=== PATIENT | female | born 1940 | race Caucasian/White ===

== ENCOUNTER 2017-01-25 17:11 | Inpatient (IN) | payer OTHER ==
[~2017-01-25] VITALS: Ht 160 cm; Wt 68.9 kg
[2017-01-25] VITALS (7 sets, daily range): BP systolic 98–127; BP diastolic 34–70
[~2017-01-25 17:11] MED LIST: ALBU8.5H5 INH; ASCO-96 PO; CALC1CAP8 PO; CHOL10002 PO; CHOL2000 PO; ESCI10TA10 PO; FOLI-17 PO; FURO-93 PO; IRON15TA3 PO; LEVO50TA PO; LISI5TAB7 PO; PANT20TA3 PO; POTA25TA4 PO; POTA8TAB PO; PROP10TA PO; TIOT18CA INH
[2017-01-25] MEDS ORDERED: ALBU8.5H8 INH (17:59)
[2017-01-25] MEDS ORDERED: POTA10TA31 PO (18:36)
[2017-01-25] MEDS ORDERED: FLUT9.9S16 NAS (18:39)
[2017-01-25 18:45] LABS: ASPARTATE AMINO TRANSFERASE 21 U/L (15-37); BLOOD UREA NITROGEN 17 mg/dL (7-18)
[2017-01-25 18:50] LABS: IS PT STATUS REG ER OR PRE ER? YES
[2017-01-25 18:53] LABS: WHITE BLOOD COUNT 3.2 x10^3/uL (3.4-10)
[2017-01-25 18:55] LABS: HEMATOCRIT 17.2 % (34.6-47.8); HEMOGLOBIN 5.1 g/dL (11.7-16.4)
[2017-01-25] MEDS ORDERED: SODIUM CHLORIDE 0.9% 1,000ML IVBOLUS ONE (20:00)
[2017-01-25] MEDS ORDERED: SODIUM CHLORIDE FLUSH 10ML SYR IVF PRN (20:00)
[2017-01-25] MEDS ORDERED: TIOT4MIS3 INH (20:50)
[2017-01-25] MEDS ORDERED: TEMPLATE NON-FORMULARY MED. (Albuterol Sulfate** (Albuterol Sulfate Hfa**) 2 PUFF(S)) INH PRN (21:00)
[2017-01-25] MEDS ORDERED: BISACODYL 10 MG SUPP PR PRN (21:00)
[2017-01-25] MEDS ORDERED: ONDANSETRON 2MG/ML, 2ML IVPush PRN (21:00)
[2017-01-25] MEDS: SODIUM CHLORIDE FLUSH 10ML SYR IVF SCH (21:00)
[2017-01-25] MEDS ORDERED: PANTOPRAZOLE 80 MG in SODIUM CHLORIDE 0.9% 50 ML IV ONE (21:00)
[2017-01-25] MEDS ORDERED: ALBUTEROL SULFATE 2.5 MG/3 ML NPPB PRN (21:00)
[2017-01-25] MEDS ORDERED: ACETAMINOPHEN 325 MG TABLET PO PRN (21:00)
[2017-01-25 21:02] LABS: FERRITIN 12.9 ng/mL (8-252)
[2017-01-25] MEDS ORDERED: FLUTICASONE NASAL SPRAY 16GM NAS PRN (21:30)
[2017-01-25] MEDS: PANTOPRAZOLE 80 MG in SODIUM CHLORIDE 0.9% 100 ML IV SCH (22:13)
[2017-01-25] MEDS: PROPRANOLOL 10 MG TABLET PO SCH (22:13)
[2017-01-26 00:49] VITALS: BP 138/65
[2017-01-26 01:20] VITALS: BP 113/75
[2017-01-26 01:46] LABS: HEMATOCRIT 24.4 % (34.6-47.8)
[2017-01-26] MEDS: LEVOTHYROXINE 50 MCG TABLET PO SCH (05:50)
[2017-01-26 07:15] LABS: BLOOD UREA NITROGEN 13 mg/dL (7-18)
[2017-01-26 07:19] LABS: ASPARTATE AMINO TRANSFERASE 17 U/L (15-37)
[2017-01-26 07:21] LABS: HEMATOCRIT 24.9 % (34.6-47.8); WHITE BLOOD COUNT 3.4 x10^3/uL (3.4-10)
[2017-01-26 07:38] LABS: ANISOCYTOSIS 1+; HYPOCHROMIA 1+; POLYCHROMASIA 1+; STOMATOCYTES 1+
[2017-01-26 07:41] LABS: SPHEROCYTES 1+
[2017-01-26 07:42] LABS: LARGE PLATELETS 1+
[2017-01-26 07:45] VITALS: BP 108/59
[2017-01-26] MEDS: FUROSEMIDE 20 MG/2 ML IV SCH (09:00)
[2017-01-26] MEDS: ASCORBIC ACID 500 MG TABLET PO SCH (09:00)
[2017-01-26] MEDS ORDERED: POTASSIUM CHLORIDE 10 MEQ TABLET.ER PO SCH (09:00)
[2017-01-26] MEDS: CALCIUM/VITAMIN D3 250-125 TABLET PO SCH ×2 (09:00→20:27)
[2017-01-26] MEDS: OLODATEROL HCL INH SCH (09:00)
[2017-01-26] MEDS: CHOLECALCIFEROL 1,000 UNIT TABLET PO SCH (09:00)
[2017-01-26] MEDS: TIOTROPIUM BR INH SCH (09:00)
[2017-01-26] MEDS: PROPRANOLOL 10 MG TABLET PO SCH ×3 (09:00→20:27)
[2017-01-26] MEDS: [UNRECOGNIZED DRUG - OTHER] INH SCH (09:00)
[2017-01-26] MEDS: FOLIC ACID 1 MG TABLET PO SCH (09:00)
[2017-01-26] MEDS: PANTOPRAZOLE 80 MG in SODIUM CHLORIDE 0.9% 100 ML IV SCH ×2 (10:02→20:27)
[2017-01-26] MEDS: SODIUM CHLORIDE FLUSH 10ML SYR IVF SCH ×2 (10:05→20:26)
[2017-01-26 12:35] LABS: HEMATOCRIT 24.9 % (34.6-47.8)
[2017-01-26] MEDS: ALBUTEROL SULFATE 2.5 MG/3 ML NPPB PRN (12:45)
[2017-01-26 15:15] VITALS: BP 121/56
[2017-01-26 16:30] LABS: HEMATOCRIT 25.6 % (34.6-47.8); HEMOGLOBIN 8.1 g/dL (11.7-16.4)
[2017-01-26 18:33] LABS: HEMATOCRIT 25.8 % (34.6-47.8)
[2017-01-26 19:40] VITALS: BP 128/67
[2017-01-27] VITALS (7 sets, daily range): BP systolic 106–134; BP diastolic 57–71
[2017-01-27] LABS: HEMATOCRIT 25.8 % (34.6-47.8); HEMOGLOBIN 8.2 g/dL (11.7-16.4)
[2017-01-27] MEDS: PANTOPRAZOLE 80 MG in SODIUM CHLORIDE 0.9% 100 ML IV SCH (05:59)
[2017-01-27 07:48] LABS: HEMATOCRIT 24.5 % (34.6-47.8); HEMOGLOBIN 7.9 g/dL (11.7-16.4)
[2017-01-27 08:01] LABS: BLOOD UREA NITROGEN 11 mg/dL (7-18)
[2017-01-27 08:04] LABS: ASPARTATE AMINO TRANSFERASE 13 U/L (15-37)
[2017-01-27] MEDS: PROPRANOLOL 10 MG TABLET PO SCH ×3 (08:28→21:39)
[2017-01-27] MEDS: [UNRECOGNIZED DRUG - OTHER] INH SCH (08:29)
[2017-01-27] MEDS: TIOTROPIUM BR INH SCH (08:29)
[2017-01-27] MEDS: OLODATEROL HCL INH SCH (08:29)
[2017-01-27] MEDS: FUROSEMIDE 20 MG/2 ML IV SCH ×2 (08:35→14:49)
[2017-01-27] MEDS: SODIUM CHLORIDE FLUSH 10ML SYR IVF SCH ×2 (08:41→21:40)
[2017-01-27] MEDS ORDERED: PROPOFOL 10 MG/ML, 20ML ONE (09:40)
[2017-01-27] MEDS ORDERED: hydrALAzine 20 MG/ML, 1ML IV PRN (10:30)
[2017-01-27] MEDS ORDERED: HYDROmorphone 1 MG/ML, 1ML IV PRN (10:30)
[2017-01-27] MEDS ORDERED: FENTANYL PF 100 MCG/2ML IV PRN (10:30)
[2017-01-27] MEDS ORDERED: MIDAZOLAM 1 MG/ML, 2ML IV PRN (10:30)
[2017-01-27] MEDS ORDERED: LABETALOL 5MG/ML, 20ML IV PRN (10:30)
[2017-01-27] MEDS ORDERED: OMEPRAZOLE 20 MG CAPSULE.DR PO SCH (10:30)
[2017-01-27] MEDS ORDERED: EPHEDRINE 50 MG/ML, 1ML IVPush PRN (10:30)
[2017-01-27] MEDS ORDERED: ONDANSETRON 2MG/ML, 2ML IVPush PRN (10:30)
[2017-01-27] MEDS ORDERED: FUROSEMIDE 40 MG/4 ML IV ONE (12:00)
[2017-01-27] MEDS: CHOLECALCIFEROL 1,000 UNIT TABLET PO SCH (12:09)
[2017-01-27] MEDS: ASCORBIC ACID 500 MG TABLET PO SCH (12:10)
[2017-01-27] MEDS: CALCIUM/VITAMIN D3 250-125 TABLET PO SCH ×2 (12:10→21:39)
[2017-01-27] MEDS: FOLIC ACID 1 MG TABLET PO SCH (12:10)
[2017-01-27 12:27] LABS: HEMATOCRIT 27.6 % (34.6-47.8); HEMOGLOBIN 8.7 g/dL (11.7-16.4)
[2017-01-27] MEDS: IRON SUCROSE COMPLEX 100MG/5ML IV SCH (13:38)
[2017-01-27] MEDS: LEVOTHYROXINE 50 MCG TABLET PO SCH (13:38)
[2017-01-27] MEDS: ALBUTEROL SULFATE 2.5 MG/3 ML NPPB PRN (17:46)
[2017-01-27] MEDS ORDERED: POTASSIUM CHLORIDE 10 MEQ TABLET.ER PO SCH (21:30)
[2017-01-27] MEDS: OMEPRAZOLE/SOD. BICARB. PACKET PO SCH (22:05)
[2017-01-28 01:05] VITALS: BP 148/69
[2017-01-28] MEDS: LEVOTHYROXINE 50 MCG TABLET PO SCH (05:56)
[2017-01-28 07:08] VITALS: BP 114/62
[2017-01-28] MEDS ORDERED: OMEPRAZOLE/SOD. BICARB. PACKET PO SCH (07:30)
[2017-01-28 07:39] LABS: HEMOGLOBIN 8.8 g/dL (11.7-16.4); WHITE BLOOD COUNT 4.7 x10^3/uL (3.4-10)
[2017-01-28 07:41] LABS: ASPARTATE AMINO TRANSFERASE 21 U/L (15-37); BLOOD UREA NITROGEN 11 mg/dL (7-18)
[2017-01-28 08:42] LABS: ANISOCYTOSIS 1+; MICROCYTOSIS 1+; POLYCHROMASIA 1+
[2017-01-28 08:43] LABS: OVALOCYTES 1+; POIKILOCYTOSIS 1+
[2017-01-28 08:45] LABS: LARGE PLATELETS 1+; STOMATOCYTES 1+
[2017-01-28] MEDS ORDERED: POTASSIUM CHLORIDE 10% 20 MEQ/15 ML UDC PO SCH (09:00)
[2017-01-28] MEDS ORDERED: ALBUTEROL SULFATE 2.5 MG/3 ML NPPB SCH (09:00)
[2017-01-28] MEDS ORDERED: [UNRECOGNIZED DRUG - OTHER] PO SCH (09:30)
[2017-01-28] MEDS: OLODATEROL HCL INH SCH (09:43)
[2017-01-28] MEDS: TIOTROPIUM BR INH SCH (09:43)
[2017-01-28] MEDS: OMEPRAZOLE/SOD. BICARB. PACKET PO SCH (09:43)
[2017-01-28] MEDS: [UNRECOGNIZED DRUG - OTHER] INH SCH (09:43)
[2017-01-28] MEDS: IRON SUCROSE COMPLEX 100MG/5ML IV SCH (09:44)
[2017-01-28] MEDS: FOLIC ACID 1 MG TABLET PO SCH (09:44)
[2017-01-28] MEDS: CHOLECALCIFEROL 1,000 UNIT TABLET PO SCH (09:44)
[2017-01-28] MEDS: PROPRANOLOL 10 MG TABLET PO SCH ×2 (09:44→16:00)
[2017-01-28] MEDS: CALCIUM/VITAMIN D3 250-125 TABLET PO SCH (09:44)
[2017-01-28] MEDS: ASCORBIC ACID 500 MG TABLET PO SCH (09:44)
[2017-01-28] MEDS: SODIUM CHLORIDE FLUSH 10ML SYR IVF SCH (09:45)
[2017-01-28 12:34] VITALS: BP 107/61
== END 2017-01-28 16:13 | disposition home or self-care (01) | DRG 377 ==
LOC: ED 19:40 → EDIP 19:45 → ED 20:05 → 4WST 21:13 → DCLOUNGE 01-28 15:44
PROVIDERS: ADMIT Hospitalist; ATTEND Hospitalist
PROC: 30233N1 Transfusion of Nonautologous Red Blood Cells into Peripheral Vein, Percutaneous Approach (ICD-10-PCS; principal; 2017-01-25)
PROC: 0D568ZZ Destruction of Stomach, Via Natural or Artificial Opening Endoscopic (ICD-10-PCS; 2017-01-27)
PROC: 0DB98ZX Excision of Duodenum, Via Natural or Artificial Opening Endoscopic, Diagnostic (ICD-10-PCS; 2017-01-27)
PROC: 0DB78ZX Excision of Stomach, Pylorus, Via Natural or Artificial Opening Endoscopic, Diagnostic (ICD-10-PCS; 2017-01-27)
DX: K55.21 Angiodysplasia of colon with hemorrhage (principal); E43 Unspecified severe protein-calorie malnutrition; J96.10 Chronic respiratory failure, unspecified whether with hypoxia or hypercapnia; D69.6 Thrombocytopenia, unspecified; Z99.81 Dependence on supplemental oxygen; J44.9 Chronic obstructive pulmonary disease, unspecified; D62 Acute posthemorrhagic anemia; K29.01 Acute gastritis with bleeding; K92.1 Melena; K70.30 Alcoholic cirrhosis of liver without ascites; E03.9 Hypothyroidism, unspecified; Z68.26 Body mass index [BMI] 26.0-26.9, adult; D50.9 Iron deficiency anemia, unspecified; I10 Essential (primary) hypertension; K44.9 Diaphragmatic hernia without obstruction or gangrene; R04.0 Epistaxis; Z82.49 Family history of ischemic heart disease and other diseases of the circulatory system; Z87.891 Personal history of nicotine dependence
CPT/HCPCS: 36415; 36430; 71010; 76700; 80053; 82105; 82728; 83540; 83550; 83880; 84484; 85014; 85018; 85025; 85610; 85730; 86850; 86900; 86923; 88305; 93005; 93306; 93970; 94640; 99291; J1756; J2704; J7613; C9113; J1940; J7030; P9016

== ENCOUNTER 2017-03-07 10:54 | Day surgery (SDC) | payer OTHER ==
[~2017-03-07] VITALS: Ht 160 cm; Wt 58.7 kg
[~2017-03-07 10:54] MED LIST changes: +ALBU8.5H8 INH; +FLUT9.9S16 NAS; +POTA10TA31 PO; +TIOT4MIS3 INH
[2017-03-07] MEDS ORDERED: LACTATED RINGERS 1,000 ML IV SCH (11:23)
[2017-03-07 12:08] VITALS: BP 130/68
[2017-03-07] MEDS ORDERED: PROPOFOL 10 MG/ML, 20ML ONE (13:26)
[2017-03-07] MEDS ORDERED: ALBUTEROL/IPRATROPIUM 2.5MG/0.5MG, 3 ML NPPB PRN (14:00)
[2017-03-07] MEDS ORDERED: ONDANSETRON 2MG/ML, 2ML IVPush PRN (14:00)
[2017-03-07] MEDS ORDERED: OXYcodone 5 MG/5 ML ORAL.SOL UDC PO PRN (14:00)
[2017-03-07] MEDS ORDERED: ACETAMINOPHEN 325 MG TABLET PO PRN (14:00)
[2017-03-07] MEDS ORDERED: HYDROmorphone 1 MG/ML, 1ML IV PRN (14:00)
[2017-03-07] MEDS ORDERED: FENTANYL PF 100 MCG/2ML IV PRN (14:00)
[2017-03-07] MEDS ORDERED: ALBUTEROL SULFATE 2.5 MG/3 ML ONE (14:24)
== END 2017-03-07 16:00 ==
LOC: OUT 10:54
PROVIDERS: ATTEND Internal Medicine
DX: K55.21 Angiodysplasia of colon with hemorrhage (principal); D64.9 Anemia, unspecified
CPT/HCPCS: 43255; 94640; C1769; J2704; J7120; J7620

== ENCOUNTER 2017-05-06 12:54 | Emergency (ER) | payer OTHER ==
[~2017-05-06] VITALS: Ht 157.5 cm; Wt 63.0 kg
[2017-05-06] MEDS ORDERED: PANT40TA5 PO (13:27)
[2017-05-06] MEDS ORDERED: ONDANSETRON 2MG/ML, 2ML ONE (13:37)
[2017-05-06] MEDS ORDERED: MORPHINE SULFATE 4 MG/ML, 1ML ONE (13:37)
[2017-05-06] MEDS ORDERED: MORPHINE SULFATE 4 MG/ML, 1ML IVPush PRN (14:00)
[2017-05-06] MEDS ORDERED: ONDANSETRON 2MG/ML, 2ML IVPush ONE (14:00)
[2017-05-06 15:42] VITALS: BP 134/42
== END 2017-05-06 15:46 | disposition home or self-care (01) ==
LOC: ED 15:40
DX: S70.02XA Contusion of left hip, initial encounter (principal); S00.83XA Contusion of other part of head, initial encounter; I10 Essential (primary) hypertension; J44.9 Chronic obstructive pulmonary disease, unspecified; K21.9 Gastro-esophageal reflux disease without esophagitis; E03.9 Hypothyroidism, unspecified; W01.0XXA Fall on same level from slipping, tripping and stumbling without subsequent striking against object, initial encounter; Y93.89 Activity, other specified; Y92.480 Sidewalk as the place of occurrence of the external cause; Y99.8 Other external cause status
CPT/HCPCS: 70450; 70486; 72125; 93005; 96374; 96375; 99284; J2405

== ENCOUNTER 2020-11-20 18:42 | Inpatient (IN) | payer MEDICARE ==
[~2020-11-20] VITALS: Ht 157.5 cm; Wt 50.5 kg
[~2020-11-20 18:42] MED LIST changes: -FOLI-17 PO; +FOLI1TAB32 PO; -PANT20TA3 PO; +PANT20TA4 PO; +PANT40TA6 PO; -PROP10TA PO; +PROP10TA16 PO
--- NOTE | 2020-11-20 18:59 | NUR ---
RECEIVED REPORT FROM TORI MEHTA. TRANSFER OF CARE. [facility]ITER OUTSIDE ROOM FOR SAFETY MONITORING Addendum: 11/20/20 at 1900 by [email or web address] SITTER NOT OUT [place]
[2020-11-20] MEDS ORDERED: SODIUM CHLORIDE FLUSH 10ML SYR IVF ONE (19:00)
[2020-11-20 19:16] LABS: BASOPHILS % (AUTO) 1 % (0-1); EOSINOPHILS % (AUTO) 3 % (1-7); LYMPHOCYTES % (AUTO) 13 % (22-44); MEAN CORPUSCULAR HEMOGLOBIN 32.4 pg (27.0-34.8); MEAN CORPUSCULAR HGB CONC 34.3 g/dL (32.4-35.8); MEAN PLATELET VOLUME 8.6 fL (7.4-10.4); MONOCYTES % (AUTO) 10 % (2-9); NEUTROPHILS % (AUTO) 73 % (42-75); PLATELET COUNT 146 x10^3/uL (130-400); RED BLOOD COUNT 3.43 x10^6/uL (3.82-5.3); RED CELL DISTRIBUTION WIDTH 13.1 % (9.6-15.2)
[2020-11-20 19:25] LABS: ALANINE AMINOTRANSFERASE 15 U/L (12-78); ALBUMIN 2.4 g/dL (3.4-5.0); ANION GAP 4 mmol/L (5-15); CALCIUM 9.2 mg/dL (8.5-10.1); CHLORIDE 102 mmol/L (98-107); CREATININE 0.59 mg/dL (0.55-1.02)
[2020-11-20 19:30] LABS: INTERNATIONAL NORMALIZED RATIO 1.07 (0.93-1.1); PROTHROMBIN TIME 11.4 Seconds (9.6-11.5)
--- NOTE | 2020-11-20 19:30 | NUR ---
pt c/o of epigastric pain last night. pt states that pain began to get worse. denies fever/chills, cp, sob, n/v attached to card/sp02/bp monitors. vss. daughter at bedside. nadn bed in low, rails engaged, call light on lap. pt currently resting in bed watching tv. wctm
[2020-11-20 19:35] LABS: ALKALINE PHOSPHATASE 97 U/L (45-117); BILIRUBIN,TOTAL 0.9 mg/dL (0.2-1.0); TOTAL PROTEIN 6.1 g/dL (6.4-8.2); TROPONIN I < 0.015 ng/mL (0.000-0.045)
--- NOTE | 2020-11-20 19:49 | NUR ---
PT OFF UNIT IN IMAGING.
--- NOTE | 2020-11-20 19:54 | NUR ---
MED REC COMPLETE
--- NOTE | 2020-11-20 19:54 | NUR ---
PT BACK FROM [place]. [facility] [facility]. TRUJ[place]O. JOSE RAUL
[2020-11-20] MEDS ORDERED: OMNIPAQUE 350 MG/ML, 100ML BOTTLE ONE (20:02)
--- NOTE | 2020-11-20 20:26 | NUR ---
pt transferred from gyne bed to [facility]. pt given pillows and blankets for comfort. pt resting in bed watching tv. vss. attached to all monitors. nadn./ wctm
[2020-11-20] MEDS ORDERED: MORPHINE SULFATE 4 MG/ML, 1ML ONE (20:51)
[2020-11-20] MEDS ORDERED: SODIUM CHLORIDE 0.9% 1,000ML IVBOLUS ONE (21:00)
[2020-11-20] MEDS ORDERED: SODIUM CHLORIDE 0.9% 1,000 ML IV ONE (21:00)
[2020-11-20] MEDS ORDERED: MORPHINE SULFATE 4 MG/ML, 1ML IVPush ONE (21:00)
--- NOTE | 2020-11-20 22:11 | NUR ---
US AT BEDSIDE
--- NOTE | 2020-11-20 22:18 | NUR ---
GAVE REPORT TO WILLARD MEHTA.
[2020-11-20] MEDS ORDERED: MELATONIN 5 MG TABLET PO PRN (22:30)
[2020-11-20] MEDS ORDERED: DILTIAZEM 5 MG/ML, 5ML IVPush PRN (22:30)
[2020-11-20] MEDS ORDERED: ONDANSETRON 2MG/ML, 2ML IVPush PRN (22:30)
[2020-11-20] MEDS ORDERED: morphine SULFATE 10 MG/ML, 1ML IVPush PRN (22:30)
[2020-11-20] MEDS ORDERED: LABETALOL 5MG/ML, 20ML IVPush PRN (22:30)
--- NOTE | 2020-11-20 22:38 | NUR ---
PT GIVEN WATER. AWAITING TRANFER TO FLOOR
--- NOTE | 2020-11-20 22:48 | NUR ---
GAVE REPORT TO LAUREN MEHTA
[2020-11-20 23:18] VITALS: BP 129/66
[2020-11-20] MEDS: ENOXAPARIN 40 MG/0.4 ML SQ SCH (23:48)
[2020-11-21 00:15] VITALS: BP 122/71
[2020-11-21 05:53] LABS: BASOPHILS % (AUTO) 1 % (0-1); EOSINOPHILS % (AUTO) 3 % (1-7); LYMPHOCYTES % (AUTO) 17 % (22-44); MEAN CORPUSCULAR HEMOGLOBIN 32.9 pg (27.0-34.8); MEAN CORPUSCULAR HGB CONC 34.8 g/dL (32.4-35.8); MEAN PLATELET VOLUME 8.8 fL (7.4-10.4); MONOCYTES % (AUTO) 9 % (2-9); NEUTROPHILS % (AUTO) 71 % (42-75); PLATELET COUNT 126 x10^3/uL (130-400); RED BLOOD COUNT 3.14 x10^6/uL (3.82-5.3); RED CELL DISTRIBUTION WIDTH 13.2 % (9.6-15.2)
[2020-11-21 05:57] LABS: INTERNATIONAL NORMALIZED RATIO 1.08 (0.93-1.1); PROTHROMBIN TIME 11.5 Seconds (9.6-11.5)
[2020-11-21 06:00] LABS: ALANINE AMINOTRANSFERASE 11 U/L (12-78); ALBUMIN 2.4 g/dL (3.4-5.0); ANION GAP 2 mmol/L (5-15); CHLORIDE 108 mmol/L (98-107); CREATININE 0.43 mg/dL (0.55-1.02)
[2020-11-21 06:02] LABS: ALKALINE PHOSPHATASE 89 U/L (45-117); BILIRUBIN,TOTAL 0.6 mg/dL (0.2-1.0); TOTAL PROTEIN 5.6 g/dL (6.4-8.2)
[2020-11-21] MEDS: ALBUTEROL/IPRATROPIUM 2.5MG/0.5MG, 3 ML NPPB SCH ×2 (07:55→21:00)
[2020-11-21 08:26] VITALS: BP 123/69
[2020-11-21] MEDS: FAMOTIDINE 20 MG TABLET PO SCH ×2 (08:32→20:07)
[2020-11-21] MEDS ORDERED: ALBUTEROL SULFATE 2.5 MG/3 ML HHN PRN ×3 (12:00)
[2020-11-21] MEDS: ACETAMINOPHEN 325 MG TABLET PO PRN (13:09)
[2020-11-21 13:15] VITALS: BP 130/74
[2020-11-21] MEDS: PROPRANOLOL 10 MG TABLET PO SCH ×2 (13:17→20:07)
[2020-11-21] MEDS: FUROSEMIDE 20 MG TABLET PO SCH (13:17)
[2020-11-21 19:39] VITALS: BP 138/78
[2020-11-21] MEDS: BUDESONIDE 0.5 MG/2 ML INHA NPPB SCH (21:00)
[2020-11-21] MEDS: ENOXAPARIN 40 MG/0.4 ML SQ SCH (23:47)
[2020-11-22 02:00] VITALS: BP 136/70
[2020-11-22] MEDS: LEVOTHYROXINE 75 MCG TABLET PO SCH (05:36)
[2020-11-22] MEDS ORDERED: ALBUTEROL SULFATE 2.5 MG/3 ML HHN SCH ×2 (06:00→14:00)
[2020-11-22 06:33] VITALS: BP 125/71
[2020-11-22 06:50] LABS: ANION GAP 3 mmol/L (5-15); CHLORIDE 103 mmol/L (98-107); CREATININE 0.45 mg/dL (0.55-1.02)
[2020-11-22] MEDS ORDERED: ALBUTEROL/IPRATROPIUM 2.5MG/0.5MG, 3 ML NPPB SCH (07:00)
[2020-11-22] MEDS: FOLIC ACID 1 MG TABLET PO SCH (07:59)
[2020-11-22] MEDS: FUROSEMIDE 20 MG TABLET PO SCH (07:59)
[2020-11-22] MEDS: SODIUM CHLORIDE 0.9% 1,000 ML IV SCH (07:59)
[2020-11-22] MEDS: PANTOPRAZOLE 40MG TABLET PO SCH (07:59)
[2020-11-22] MEDS: POTASSIUM CHLORIDE 10 MEQ TABLET.ER PO SCH (07:59)
[2020-11-22] MEDS: BUDESONIDE 0.5 MG/2 ML INHA NPPB SCH ×2 (08:10→19:43)
[2020-11-22] MEDS: PROPRANOLOL 20 MG TABLET PO SCH ×2 (09:00→20:44)
[2020-11-22 09:30] VITALS: BP 136/75
[2020-11-22] MEDS ORDERED: OMNIPAQUE 350 MG/ML, 75ML BOTTLE ONE (10:51)
[2020-11-22 15:27] VITALS: BP 144/80
[2020-11-22] MEDS ORDERED: INSTRUCTION SEE COMMENTS XX PRN (17:00)
[2020-11-22] MEDS ORDERED: PHARMACY INSTRUCTION MC PRN (17:00)
[2020-11-22] MEDS: HEPARIN 5,000 UNITS/ML, 1ML SQ SCH (17:00)
[2020-11-22 19:12] VITALS: BP 127/81
[2020-11-22] MEDS: ALBUTEROL/IPRATROPIUM 2.5MG/0.5MG, 3 ML NPPB SCH (19:43)
[2020-11-22] MEDS: MELATONIN 3 MG TABLET PO SCH (20:43)
[2020-11-23] MEDS: HEPARIN 5,000 UNITS/ML, 1ML SQ SCH ×3 (03:30→20:50)
[2020-11-23] MEDS: LEVOTHYROXINE 75 MCG TABLET PO SCH (06:18)
[2020-11-23] MEDS: PANTOPRAZOLE 40MG TABLET PO SCH (06:18)
[2020-11-23] MEDS: SODIUM CHLORIDE 0.9% 1,000 ML IV SCH (06:19)
[2020-11-23 06:26] VITALS: BP 130/73
[2020-11-23 07:07] LABS: BASOPHILS % (AUTO) 1 % (0-1); EOSINOPHILS % (AUTO) 3 % (1-7); LYMPHOCYTES % (AUTO) 17 % (22-44); MEAN CORPUSCULAR HEMOGLOBIN 33.2 pg (27.0-34.8); MEAN PLATELET VOLUME 8.5 fL (7.4-10.4); MONOCYTES % (AUTO) 9 % (2-9); NEUTROPHILS % (AUTO) 71 % (42-75); PLATELET COUNT 147 x10^3/uL (130-400); RED BLOOD COUNT 3.35 x10^6/uL (3.82-5.3); RED CELL DISTRIBUTION WIDTH 13.2 % (9.6-15.2)
[2020-11-23 07:13] LABS: ANION GAP 3 mmol/L (5-15); CALCIUM 8.7 mg/dL (8.5-10.1); CHLORIDE 105 mmol/L (98-107)
[2020-11-23] MEDS: PROPRANOLOL 20 MG TABLET PO SCH ×2 (08:37→20:49)
[2020-11-23] MEDS: POTASSIUM CHLORIDE 10 MEQ TABLET.ER PO SCH ×2 (08:37→09:00)
[2020-11-23] MEDS: FOLIC ACID 1 MG TABLET PO SCH (08:37)
[2020-11-23] MEDS: DOCUSATE 100 MG CAPSULE PO SCH ×2 (08:37→20:49)
[2020-11-23] MEDS: FUROSEMIDE 20 MG TABLET PO SCH (08:37)
[2020-11-23 08:40] VITALS: BP 119/71
[2020-11-23] MEDS: BUDESONIDE 0.5 MG/2 ML INHA NPPB SCH ×2 (08:51→20:05)
[2020-11-23] MEDS: ALBUTEROL/IPRATROPIUM 2.5MG/0.5MG, 3 ML NPPB SCH ×2 (08:51→20:05)
[2020-11-23] MEDS ORDERED: LIDOCAINE 1%, 10ML ONE (10:08)
[2020-11-23] MEDS ORDERED: FLUMAZENIL 0.1 MG/1 ML, 5ML ONE (10:32)
[2020-11-23] MEDS ORDERED: FENTANYL PF 100 MCG/2ML ONE (10:32)
[2020-11-23] MEDS ORDERED: MIDAZOLAM 1 MG/ML, 5ML ONE (10:32)
[2020-11-23] MEDS ORDERED: NALOXONE 1 MG/ML, 2ML ONE (10:33)
[2020-11-23 13:02] VITALS: BP 119/61
[2020-11-23 19:12] VITALS: BP 112/58
[2020-11-23] MEDS: MELATONIN 3 MG TABLET PO SCH (20:50)
[2020-11-24] MEDS: LEVOTHYROXINE 75 MCG TABLET PO SCH (05:35)
[2020-11-24] MEDS: HEPARIN 5,000 UNITS/ML, 1ML SQ SCH ×3 (05:35→20:20)
[2020-11-24] MEDS: PANTOPRAZOLE 40MG TABLET PO SCH (05:36)
[2020-11-24] MEDS: ACETAMINOPHEN 325 MG TABLET PO PRN (05:38)
[2020-11-24] MEDS: SODIUM CHLORIDE 0.9% 1,000 ML IV SCH (05:44)
[2020-11-24] MEDS ORDERED: ACETAMINOPHEN 500 MG TABLET PO PRN (07:00)
[2020-11-24 07:48] VITALS: BP 120/64
[2020-11-24] MEDS: DOCUSATE 100 MG CAPSULE PO SCH ×2 (08:52→20:20)
[2020-11-24] MEDS: POTASSIUM CHLORIDE 10 MEQ TABLET.ER PO SCH (08:52)
[2020-11-24] MEDS: FUROSEMIDE 20 MG TABLET PO SCH (08:52)
[2020-11-24] MEDS: PROPRANOLOL 20 MG TABLET PO SCH (08:52)
[2020-11-24] MEDS: FOLIC ACID 1 MG TABLET PO SCH (08:52)
[2020-11-24] MEDS: ALBUTEROL/IPRATROPIUM 2.5MG/0.5MG, 3 ML NPPB SCH ×2 (08:55→21:00)
[2020-11-24] MEDS: BUDESONIDE 0.5 MG/2 ML INHA NPPB SCH ×2 (08:55→21:00)
[2020-11-24 13:10] VITALS: BP 107/61
[2020-11-24] MEDS ORDERED: GADOTERATE 5 MMOL/10ML SYR ONE (19:09)
[2020-11-24 20:14] VITALS: BP 119/70
[2020-11-24] MEDS: PROPRANOLOL 10 MG TABLET PO SCH (20:20)
[2020-11-24] MEDS: MELATONIN 3 MG TABLET PO SCH (20:20)
[2020-11-25] MEDS: SODIUM CHLORIDE 0.9% 1,000 ML IV SCH ×2 (03:33→21:39)
[2020-11-25] MEDS: LEVOTHYROXINE 75 MCG TABLET PO SCH (06:32)
[2020-11-25] MEDS: PROPRANOLOL 10 MG TABLET PO SCH ×3 (06:32→21:40)
[2020-11-25] MEDS: PANTOPRAZOLE 40MG TABLET PO SCH (06:32)
[2020-11-25] MEDS: HEPARIN 5,000 UNITS/ML, 1ML SQ SCH ×3 (06:33→21:42)
[2020-11-25] MEDS: ALBUTEROL/IPRATROPIUM 2.5MG/0.5MG, 3 ML NPPB SCH ×2 (06:42→20:13)
[2020-11-25] MEDS: BUDESONIDE 0.5 MG/2 ML INHA NPPB SCH ×2 (06:42→20:13)
[2020-11-25 07:05] VITALS: BP 141/79
[2020-11-25] MEDS ORDERED: POTASSIUM CHLORIDE 10 MEQ TABLET.ER PO SCH (09:00)
[2020-11-25] MEDS ORDERED: POTASSIUM CHLORIDE 10 MEQ TABLET.ER ONE (09:04)
[2020-11-25] MEDS: DOCUSATE 100 MG CAPSULE PO SCH ×2 (09:14→21:39)
[2020-11-25] MEDS: FUROSEMIDE 20 MG TABLET PO SCH (09:14)
[2020-11-25] MEDS: POTASSIUM CHLORIDE 10% 20 MEQ/15 ML UDC PO SCH (09:14)
[2020-11-25] MEDS: FOLIC ACID 1 MG TABLET PO SCH (09:14)
[2020-11-25 13:00] VITALS: BP 95/58
[2020-11-25 20:20] VITALS: BP 125/75
[2020-11-25] MEDS: MELATONIN 3 MG TABLET PO SCH (21:00)
[2020-11-26] MEDS: HEPARIN 5,000 UNITS/ML, 1ML SQ SCH ×3 (06:26→21:13)
[2020-11-26] MEDS: PROPRANOLOL 10 MG TABLET PO SCH ×3 (06:26→21:12)
[2020-11-26] MEDS: PANTOPRAZOLE 40MG TABLET PO SCH (06:26)
[2020-11-26] MEDS: LEVOTHYROXINE 75 MCG TABLET PO SCH (06:26)
[2020-11-26 07:09] VITALS: BP 116/73
[2020-11-26] MEDS ORDERED: POTASSIUM CHLORIDE 10 MEQ TABLET.ER ONE (08:51)
[2020-11-26] MEDS: DOCUSATE 100 MG CAPSULE PO SCH ×2 (09:02→21:12)
[2020-11-26] MEDS: FUROSEMIDE 20 MG TABLET PO SCH (09:02)
[2020-11-26] MEDS: POTASSIUM CHLORIDE 10% 20 MEQ/15 ML UDC PO SCH (09:02)
[2020-11-26] MEDS: FOLIC ACID 1 MG TABLET PO SCH (09:02)
[2020-11-26] MEDS: BUDESONIDE 0.5 MG/2 ML INHA NPPB SCH ×2 (09:10→19:49)
[2020-11-26] MEDS: ALBUTEROL/IPRATROPIUM 2.5MG/0.5MG, 3 ML NPPB SCH ×2 (09:10→19:49)
[2020-11-26 12:10] VITALS: BP 111/72
[2020-11-26 19:28] VITALS: BP 118/71
[2020-11-26] MEDS: MELATONIN 3 MG TABLET PO SCH (21:12)
[2020-11-27] MEDS: PANTOPRAZOLE 40MG TABLET PO SCH (05:45)
[2020-11-27] MEDS: PROPRANOLOL 10 MG TABLET PO SCH ×2 (05:45→15:41)
[2020-11-27] MEDS: HEPARIN 5,000 UNITS/ML, 1ML SQ SCH ×2 (05:45→15:45)
[2020-11-27] MEDS: LEVOTHYROXINE 75 MCG TABLET PO SCH (05:45)
[2020-11-27 06:49] VITALS: BP 131/75
[2020-11-27] MEDS: FUROSEMIDE 20 MG TABLET PO SCH (08:32)
[2020-11-27] MEDS: DOCUSATE 100 MG CAPSULE PO SCH (08:32)
[2020-11-27] MEDS: FOLIC ACID 1 MG TABLET PO SCH (08:32)
[2020-11-27] MEDS: POTASSIUM CHLORIDE 10% 20 MEQ/15 ML UDC PO SCH (08:33)
[2020-11-27] MEDS: ALBUTEROL/IPRATROPIUM 2.5MG/0.5MG, 3 ML NPPB SCH (10:00)
[2020-11-27] MEDS: BUDESONIDE 0.5 MG/2 ML INHA NPPB SCH (10:00)
[2020-11-27 12:10] VITALS: BP 130/80
[2020-11-27] MEDS ORDERED: PROP10TA16 PO (13:32)
[2020-11-27] MEDS ORDERED: DOCU-131 PO (13:32)
== END 2020-11-27 17:27 | DRG 308 ==
LOC: ED 21:35 → EDIP 22:07 → 5SO 23:11
PROVIDERS: ADMIT Internal Medicine; ATTEND Internal Medicine
PROC: 0BBC3ZX Excision of Right Upper Lung Lobe, Percutaneous Approach, Diagnostic (ICD-10-PCS; principal; 2020-11-23)
DX: I48.91 Unspecified atrial fibrillation (principal); E43 Unspecified severe protein-calorie malnutrition; D68.69 Other thrombophilia; J96.11 Chronic respiratory failure with hypoxia; J93.83 Other pneumothorax; J44.9 Chronic obstructive pulmonary disease, unspecified; E03.9 Hypothyroidism, unspecified; I10 Essential (primary) hypertension; K70.30 Alcoholic cirrhosis of liver without ascites; D64.9 Anemia, unspecified; Z20.822 Contact with and (suspected) exposure to COVID-19; R29.810 Facial weakness; K21.9 Gastro-esophageal reflux disease without esophagitis; Z87.891 Personal history of nicotine dependence; Z90.49 Acquired absence of other specified parts of digestive tract; Z90.710 Acquired absence of both cervix and uterus; Z68.20 Body mass index [BMI] 20.0-20.9, adult; Z99.81 Dependence on supplemental oxygen; Y84.8 Other medical procedures as the cause of abnormal reaction of the patient, or of later complication, without mention of misadventure at the time of the procedure; Y92.239 Unspecified place in hospital as the place of occurrence of the external cause
CPT/HCPCS: 32408; 36415; 70553; 71045; 71275; 74177; 76700; 77012; 80048; 80053; 82140; 83605; 83690; 83735; 83880; 84443; 84484; 85025; 85610; 87635; 88305; 88333; 93005; 93306; 94640; 96361; 96374; 96375; 99156; 99157; G0378; J1644; J1650; J2250; J3010; J7613; J7626; Q9967; A9575; J2270; J2310; J7030

== ENCOUNTER 2020-12-05 10:23 | Inpatient (IN) | payer MEDICARE ==
[~2020-12-05] VITALS: Ht 157.5 cm; Wt 50.9 kg
[~2020-12-05 10:23] MED LIST changes: +DOCU-131 PO
[2020-12-05] MEDS ORDERED: SODIUM CHLORIDE 0.9% 1,000ML IVBOLUS ONE (10:30)
[2020-12-05] MEDS ORDERED: SODIUM CHLORIDE FLUSH 10ML SYR IVF ONE (10:30)
--- NOTE | 2020-12-05 10:45 | NUR ---
PT BIB EMS FOR ALTERED STATE AND SPEECH DIFFICULTY. LAST SEEN NORMAL AT 1700 YESTERDAY. PT RECENT ADMIT TO FACILITY [facility] FOR DELIRIUM AND WEAKNESS RELATED NOT EATING WELL AFTER HOSPITAL ADMIT. PT FOLLOWING SOME COMMANDS, BUT IS ONLY ALERT TO PERSON. PT KEEPS GRABBING RAILS OF THE BED AND MOVING HER LEGS AND STATES SHE FEELS LIKE SHE IS FALLING. PT HOOKED UP TO MONITORING. VSS. RAILS UP. CALL LIGHT WITHIN REACH. DAUGHTER BEDSIDE, HAS POA. 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
--- NOTE | 2020-12-05 10:54 | NUR ---
SPOKE WITH ANAND BREWSTER VERBAL OK TO TREAT PT REC'D
[2020-12-05] MEDS ORDERED: PLEASE ENTER HEIGHT AND WEIGHT MC SCH (11:00)
--- NOTE | 2020-12-05 11:08 | NUR ---
PT OFF THE FLOOR TO CT
--- NOTE | 2020-12-05 11:27 | NUR ---
TASK RN: THIS RN PERFORMED STRAIGHT CATH UA WITH ASSISTANCE FROM JANINE ROJO. SAMPLE WAS WALKED TO LAB. THIS WAS AT APPROXIMATLY 1100. CALLED LAB TO ASK ABOUT SAMPLE AT THIS TIME IT DID NOT SHOW URINE WAS BEING PROCESSED. PER DETENTION OFFICER IT WILL BE RUN NOW.
[2020-12-05 11:37] LABS: MICROSCOPIC INDICATED
[2020-12-05 11:44] LABS: BASOPHILS % (AUTO) 0 % (0-1); EOSINOPHILS % (AUTO) 1 % (1-7); LYMPHOCYTES % (AUTO) 7 % (22-44); MEAN CORPUSCULAR HEMOGLOBIN 31.7 pg (27.0-34.8); MEAN CORPUSCULAR HGB CONC 33.3 g/dL (32.4-35.8); MEAN PLATELET VOLUME 9.3 fL (7.4-10.4); MONOCYTES % (AUTO) 12 % (2-9); NEUTROPHILS % (AUTO) 80 % (42-75); PLATELET COUNT 215 x10^3/uL (130-400); RED CELL DISTRIBUTION WIDTH 13.9 % (9.6-15.2)
[2020-12-05 11:53] LABS: ALBUMIN 2.9 g/dL (3.4-5.0); CALCIUM 10.8 mg/dL (8.5-10.1); CHLORIDE 102 mmol/L (98-107)
[2020-12-05 11:59] LABS: ALANINE AMINOTRANSFERASE 32 U/L (12-78); ALKALINE PHOSPHATASE 111 U/L (45-117); BILIRUBIN,TOTAL 1.2 mg/dL (0.2-1.0); TOTAL PROTEIN 6.3 g/dL (6.4-8.2); TROPONIN I < 0.015 ng/mL (0.000-0.045)
[2020-12-05 12:09] LABS: ANION GAP 4 mmol/L (5-15)
[2020-12-05] MEDS ORDERED: SODIUM CHLORIDE 0.9% 1,000 ML IV ONE (13:03)
[2020-12-05] MEDS ORDERED: CEFTRIAXONE 1,000 MG in DEXTROSE 5% 50 ML IVPB ONE (13:30)
[2020-12-05] MEDS ORDERED: OMEP-110 PO (13:51)
[2020-12-05] MEDS ORDERED: UMEC1DIS INH (13:51)
--- NOTE | 2020-12-05 14:09 | NUR ---
REPORT TO JANINE COLLINS
--- NOTE | 2020-12-05 14:13 | NUR ---
MONTANA MONAHAN, DAUGHTER IS NEY.
[2020-12-05] MEDS ORDERED: LABETALOL 5MG/ML, 20ML IVPush PRN (14:30)
[2020-12-05] MEDS ORDERED: ALBUTEROL HFA 90 MCG/SPRAY INH PRN ×2 (14:30)
[2020-12-05] MEDS ORDERED: KETOROLAC 30 MG/1 ML IV PRN (14:30)
[2020-12-05] MEDS ORDERED: ONDANSETRON 2MG/ML, 2ML IVPush PRN (14:30)
[2020-12-05] MEDS ORDERED: CEFTRIAXONE 1,000 MG IM SCH (15:00)
[2020-12-05 15:33] LABS: FREE T4 (FREE THYROXINE) 1.75 ng/dL (0.76-1.46)
--- NOTE | 2020-12-05 16:07 | NUR ---
PT REPORT TO JANINE CORTEZ
[2020-12-05 16:30] VITALS: BP 126/71
[2020-12-05] MEDS ORDERED: LACTULOSE 3.3 GM/5 ML ORAL.SOL RC ONE (16:30)
[2020-12-05] MEDS: HEPARIN 5,000 UNITS/ML, 1ML SQ SCH (17:46)
[2020-12-05] MEDS: NS + 20MEQ KCL 1,000 ML IV SCH (17:46)
[2020-12-05 19:52] VITALS: BP 129/82
[2020-12-06 00:40] VITALS: BP 132/81
[2020-12-06] MEDS: NS + 20MEQ KCL 1,000 ML IV SCH ×2 (03:51→15:13)
[2020-12-06] MEDS: HEPARIN 5,000 UNITS/ML, 1ML SQ SCH ×2 (05:38→18:39)
[2020-12-06 06:02] LABS: BASOPHILS % (AUTO) 0 % (0-1); EOSINOPHILS % (AUTO) 2 % (1-7); LYMPHOCYTES % (AUTO) 8 % (22-44); MEAN CORPUSCULAR HEMOGLOBIN 32.6 pg (27.0-34.8); MEAN CORPUSCULAR HGB CONC 33.9 g/dL (32.4-35.8); MEAN PLATELET VOLUME 9.2 fL (7.4-10.4); MONOCYTES % (AUTO) 7 % (2-9); NEUTROPHILS % (AUTO) 83 % (42-75); PLATELET COUNT 138 x10^3/uL (130-400); RED BLOOD COUNT 3.86 x10^6/uL (3.82-5.3); RED CELL DISTRIBUTION WIDTH 14.4 % (9.6-15.2)
[2020-12-06 06:21] LABS: CREATININE 0.52 mg/dL (0.55-1.02)
[2020-12-06 06:37] LABS: CHLORIDE 110 mmol/L (98-107)
[2020-12-06 06:39] LABS: ANION GAP < 1 mmol/L (5-15)
[2020-12-06 07:09] VITALS: BP 152/70
[2020-12-06 13:10] VITALS: BP 128/68
[2020-12-06] MEDS: CEFTRIAXONE 1,000 MG in DEXTROSE 5% 50 ML IVPB SCH (14:52)
[2020-12-06 20:17] VITALS: BP 138/71
[2020-12-07 01:05] VITALS: BP 129/71
[2020-12-07] MEDS: NS + 20MEQ KCL 1,000 ML IV SCH (03:12)
[2020-12-07] MEDS: HEPARIN 5,000 UNITS/ML, 1ML SQ SCH ×2 (06:18→18:37)
[2020-12-07 08:25] VITALS: BP 165/80
[2020-12-07] MEDS ORDERED: LORazepam 2 MG/ML, 1ML IVPush ONE ×2 (10:30→12:00)
[2020-12-07 13:27] VITALS: BP 149/82
[2020-12-07] MEDS: CEFTRIAXONE 1,000 MG in DEXTROSE 5% 50 ML IVPB SCH (14:34)
[2020-12-07 18:57] VITALS: BP 132/60
[2020-12-08 00:08] VITALS: BP 122/63
[2020-12-08 05:15] LABS: BASOPHILS % (AUTO) 0 % (0-1); EOSINOPHILS % (AUTO) 4 % (1-7); LYMPHOCYTES % (AUTO) 13 % (22-44); MEAN CORPUSCULAR HEMOGLOBIN 32.9 pg (27.0-34.8); MEAN CORPUSCULAR HGB CONC 34.2 g/dL (32.4-35.8); MONOCYTES % (AUTO) 8 % (2-9); NEUTROPHILS % (AUTO) 74 % (42-75); PLATELET COUNT 94 x10^3/uL (130-400); RED BLOOD COUNT 3.23 x10^6/uL (3.82-5.3); RED CELL DISTRIBUTION WIDTH 14.1 % (9.6-15.2)
[2020-12-08 05:21] LABS: CHLORIDE 107 mmol/L (98-107)
[2020-12-08 05:27] LABS: ANION GAP 2 mmol/L (5-15); CREATININE 0.29 mg/dL (0.55-1.02)
[2020-12-08] MEDS: HEPARIN 5,000 UNITS/ML, 1ML SQ SCH (05:59)
[2020-12-08 12:55] VITALS: BP 126/70
[2020-12-08] MEDS: CEFTRIAXONE 1,000 MG in DEXTROSE 5% 50 ML IVPB SCH (14:12)
== END 2020-12-08 15:29 | disposition home health service (06) | DRG 70 ==
LOC: ED 10:34 → EDIP 13:06 → 4NE 16:24
PROVIDERS: ADMIT Internal Medicine; ATTEND Hospitalist
DX: G93.41 Metabolic encephalopathy (principal); E43 Unspecified severe protein-calorie malnutrition; N39.0 Urinary tract infection, site not specified; K76.6 Portal hypertension; J96.11 Chronic respiratory failure with hypoxia; I48.20 Chronic atrial fibrillation, unspecified; Z68.1 Body mass index [BMI] 19.9 or less, adult; K70.30 Alcoholic cirrhosis of liver without ascites; E03.9 Hypothyroidism, unspecified; E83.52 Hypercalcemia; E86.0 Dehydration; F03.90 Unspecified dementia, unspecified severity, without behavioral disturbance, psychotic disturbance, mood disturbance, and anxiety; F10.21 Alcohol dependence, in remission; J44.9 Chronic obstructive pulmonary disease, unspecified; G25.3 Myoclonus; I10 Essential (primary) hypertension; Z87.891 Personal history of nicotine dependence; Z87.440 Personal history of urinary (tract) infections; Z90.710 Acquired absence of both cervix and uterus; Z82.5 Family history of asthma and other chronic lower respiratory diseases; Z82.49 Family history of ischemic heart disease and other diseases of the circulatory system; Z68.20 Body mass index [BMI] 20.0-20.9, adult; Z90.49 Acquired absence of other specified parts of digestive tract
CPT/HCPCS: 36415; 70450; 70551; 71045; 74230; 80048; 80053; 81001; 82140; 83735; 84439; 84443; 84484; 85025; 87086; 93005; 95819; 96365; G0378; J0696; J1644; J3480; J2060; J7030